=== PATIENT | male | born 1950 | race Caucasian/White ===

== ENCOUNTER 2024-10-11 08:16 | Day surgery (SDC) | payer OTHER ==
[2024-10-11] VITALS (12 sets, daily range): BP systolic 131–163; BP diastolic 86–117
[~2024-10-11] VITALS: Ht 198.1 cm; Wt 90.0 kg
[~2024-10-11 08:16] MED LIST: ATOR20 PO; Aspir 8181 MG PO; ELIQUIS5 M2 PO; LOSA25 PO; METO50ER PO; NITR.4SL SL; PANT20 PO
[2024-10-11] MEDS ORDERED: Verapamil HCL 2.5 MG/ML 2ML Injection ONE (08:44)
[2024-10-11] MEDS ORDERED: NS 2,000 ML IV ONE (08:45)
[2024-10-11] MEDS ORDERED: Heparin Sodium 1000 Units/ML 10ML MDV ONE (08:45)
[2024-10-11] MEDS ORDERED: NS 250 ML IV ONE (08:45)
[2024-10-11] MEDS ORDERED: FentaNYL Citrate 50 MCG/ML 2 ML Injection ONE (08:50)
[2024-10-11] MEDS ORDERED: Midazolam HCl 1MG / ML 2ML Vial ONE (08:51)
[2024-10-11] MEDS ORDERED: Tirofiban HCL Monohydrate 3.75 MG/15 ML Vial ONE (09:27)
[2024-10-11] MEDS ORDERED: Clopidogrel Bisulfate 300 MG Cap ONE (09:47)
[2024-10-11] MEDS ORDERED: Aspirin 325 MG Tab ONE (09:47)
--- NOTE | 2024-10-11 10:30 | NUR ---
pt given food per request.
--- NOTE | 2024-10-11 10:31 | NUR ---
small hematoma proximal to radial site detected. firm pressure held for 5 minutes. site soft now and non-tender per pt.
--- NOTE | 2024-10-11 10:32 | NUR ---
zio patch placed.
[2024-10-11] MEDS ORDERED: CLOP75 PO (10:38)
--- NOTE | 2024-10-11 11:36 | NUR ---
radial site soft and non-tender per pt. no bleeding noted.
--- NOTE | 2024-10-11 11:51 | NUR ---
2cc of air reomved from tr band. site soft and non-tender per pt. no bleeding noted.
--- NOTE | 2024-10-11 11:56 | NUR ---
2cc removed from tr band. site soft and non-tender per pt. no bleeding noted.
--- NOTE | 2024-10-11 12:19 | NUR ---
2cc removed from tr band. site soft and non-tender per pt. no bleeding noted.
--- NOTE | 2024-10-11 12:28 | NUR ---
tr band fully deflated. no bleeding noted. site soft and non-tender per pt.
--- NOTE | 2024-10-11 12:58 | NUR ---
site soft and non-tender per pt. no bleeding noted. pressure dressing applied by donte deluna as precaution.
--- NOTE | 2024-10-11 13:29 | NUR ---
pt given dc instructions and verbalized understanding. iv out. cloth dot, pressure dressing, armboard, and sling applied. radial site soft and non-tender per pt. no bleeding noted. pt changed. pt ambulated to lby w/ .
== END 2024-10-11 14:21 | disposition home or self-care (01) ==
LOC: MHTC 08:16
DX: I25.118 Atherosclerotic heart disease of native coronary artery with other forms of angina pectoris (principal); I12.9 Hypertensive chronic kidney disease with stage 1 through stage 4 chronic kidney disease, or unspecified chronic kidney disease; N18.9 Chronic kidney disease, unspecified; E78.5 Hyperlipidemia, unspecified; I48.20 Chronic atrial fibrillation, unspecified; Z79.01 Long term (current) use of anticoagulants; Z79.899 Other long term (current) drug therapy
CPT/HCPCS: 76937; 85347; 93242; 93454; 99152; 99153; A9270; C1725; C1769; C1874; C1887; C1894; C9600; J1644; J2250; J3010; J3246; J7030; J7050; Q9967

== ENCOUNTER → 2025-08-06 | Outpatient (CLI) | payer OTHER ==
[~2025-08-06] MED LIST changes: +CLOP75 PO
[2025-08-07 13:18] LABS: Stool Occult Bld Immuno 1 Negative (NEGATIVE)
== END ==
LOC: LAB 10:30 → LAB SHORT 10:30
PROVIDERS: Physician Assistant
DX: Z12.11 Encounter for screening for malignant neoplasm of colon (principal); Z12.12 Encounter for screening for malignant neoplasm of rectum
CPT/HCPCS: G0328